=== PATIENT | female | born 1950 | race Caucasian/White ===

== ENCOUNTER 2016-11-04 12:05 | Outpatient (CLI) | payer BC | END 2016-11-04 20:12 | disposition home or self-care (01) | LOC: SMA 12:05 | PROVIDERS: ATTEND Specialist | DX: Z12.31 Encounter for screening mammogram for malignant neoplasm of breast (principal) | CPT/HCPCS: G0202 ==

== ENCOUNTER 2017-11-11 14:38 | Outpatient (CLI) | payer BC | END 2017-11-11 20:05 | disposition home or self-care (01) | LOC: SMA 14:38 | PROVIDERS: ATTEND Specialist | DX: Z12.31 Encounter for screening mammogram for malignant neoplasm of breast (principal); R92.1 Mammographic calcification found on diagnostic imaging of breast | CPT/HCPCS: 77067 ==

== ENCOUNTER 2018-12-01 10:18 | Outpatient (CLI) | payer BC | END 2018-12-01 20:57 | disposition home or self-care (01) | LOC: SMA 10:18 | PROVIDERS: ATTEND Specialist | DX: Z12.31 Encounter for screening mammogram for malignant neoplasm of breast (principal) | CPT/HCPCS: 77067 ==

== ENCOUNTER 2020-01-14 09:26 | Outpatient (CLI) | payer BC | END 2020-01-14 21:21 | disposition home or self-care (01) | LOC: SMA 09:26 | PROVIDERS: ATTEND Specialist | DX: Z12.31 Encounter for screening mammogram for malignant neoplasm of breast (principal) | CPT/HCPCS: 77067 ==

== ENCOUNTER 2021-01-29 09:49 | Outpatient (CLI) | payer BC ==
[2021-01-29] MEDS ORDERED: BUPIVACAINE LIPOSOME/PF 266 MG/20 ML VIAL INFIL ONE (13:35)
== END 2021-01-29 20:05 | disposition home or self-care (01) ==
LOC: SMA 09:49
PROVIDERS: ATTEND Specialist
DX: Z12.31 Encounter for screening mammogram for malignant neoplasm of breast (principal); N64.89 Other specified disorders of breast
CPT/HCPCS: 77067; C9290

== ENCOUNTER 2022-01-31 09:18 | Outpatient (CLI) | payer BC | END 2022-01-31 20:55 | disposition home or self-care (01) | LOC: SMA 09:18 | PROVIDERS: ATTEND Family Medicine | DX: Z12.31 Encounter for screening mammogram for malignant neoplasm of breast (principal); N64.89 Other specified disorders of breast | CPT/HCPCS: 77067 ==

== ENCOUNTER 2023-02-03 09:52 | Outpatient (CLI) | payer BC | END 2023-02-03 19:41 | disposition home or self-care (01) | LOC: SMA 09:52 | PROVIDERS: ATTEND Specialist | DX: Z12.31 Encounter for screening mammogram for malignant neoplasm of breast (principal) | CPT/HCPCS: 77067 ==